=== PATIENT | female | born 2000 | race Caucasian/White ===

== ENCOUNTER 2022-08-02 05:11 | Inpatient (IN) ==
--- NOTE | 2022-08-02 06:11 | Emergency Department Note ---
Impression & Plan Intentional overdose, Substance abuse ED Provider Note ED Provider Note NAME: FAWAD MCKAY AGE:21 SEX: Female : 2000 ARRIVES VIA: EMS INFORMANT: Patient ED PROVIDER(s): Pepper Fang DO CHIEF COMPLAINT: Intentional overdose HPI: This is a 21-year-old female brought in by EMS after arriving at [facility] for rehab and admitting to them that she had recently taken on Abilify overdose. Patient is from [place] and states that while in route from [place] to [place] she took 20 tablets of Abilify 5 mg. She states this was done all at once approximately 14 hours ago. Patient did not tell her parents. Patient states she feels tired but had no nausea, vomiting, headache, chest pain, or difficulty breathing. Patient denies any other concern for illness or injury. PAST MEDICAL HISTORY:See Below PAST SURGICAL HISTORY:See Below FAMILY HISTORY:See Below SOCIAL HISTORY:See Below HOME MEDICATIONS:See Below ALLERGIES:See Below VITALS:See Below PHYSICAL EXAMINATION: GENERAL: alert, well appearing, well nourished, no distress, non-toxic EYE EXAM: normal conjunctiva, PERRL and EOM's grossly intact OROPHARYNX: no exudate, no erythema, lips, buccal mucosa, and tongue normal and mucous membranes are moist NECK: supple, no nuchal rigidity, no adenopathy, non-tender LUNGS: Clear to auscultation. Normal chest wall mechanics, no w/r/r HEART: no murmurs, S1 normal and S2 normal ABDOMEN: abdomen soft, non-tender, normo-active bowel sounds, no masses, no rebound or guarding. BACK: Back is symmetrical on inspection and there is no deformity, no midline tenderness, no CVA tenderness. SKIN: no rashes, petechiae, orbruising UPPER EXTREMITIES: upper extremities are grossly normal. FROM, nml pulses b/l. LOWER EXTREMITIES: No pitting edema. FROM, nml pulses b/l. NEURO EXAM: Normal sensorium, cranial nerves II-XII grossly intact, normal speech, no facial droop,nogross weakness of arms, no gross weakness of legs. Gross sensation intact. No ataxia. Vital Signs: reviewed and remarkable Differential Diagnosis: suicide attempt, accidental overdose, juan luis, electrolyte abnormality, dehydration, occult infection, toxidrome, substance abuse, as well as others were MEDICAL DECISION MAKING: This is a 21-year-old female brought in by EMS for medical evaluation after arriving and going through the intake process at [facility] in order to begin rehab for substance abuse. Patient admitted to intentional ingestion 14 hours prior to arrival. Patient's only symptom was mild somnolence. Labs drawn and sent, IV established, EKG performed and interpreted by me at bedside, patient placed on telemetry. Patient's labs reassuring, no ectopy or dysrhythmia noted, patient had no new or evolving symptoms. Case discussed with poison control as a precaution due to the long half-life of Abilify. They felt given her symptoms at this point in time the patient could be safely discharged back to rehab. I did ask case management to speak with the patient given this intentional overdose. I do not feel she is an imminent threat to herself at this time and she was in agreement with plan to return to rehab to begin her treatment. Patient discharged back to [facility] in stable condition. Consultation(s): 0730: Discussed with Poison Control. Can be medically cleared at this time. May have some increased somnolence over the next day or so however given reassuring labs and hemodynamically stable, can safely be discharged back to rehab. 0750: Discussed with case management who went and evaluated the patient at bedside. No prior mental health history. No thoughts of suicidal ideation, and states this was not a suicide attempt. No prior suicide attempt. Patient states she did this because she did not want to go to rehab. ER Treatment Provided: See below Diagnostics Interpreted By Me: -ECG: Normal sinus at 83, normal axis, normal intervals, no acute ST/T wave changes -Cardiac Monitoring: An order was placed for continuous cardiac monitoring. The monitor shows a rate of 80 with normal sinus rhythm. -Laboratory studies: As stated above and show below. -Imaging studies: [] Triage Nursing Note Reviewed Prior/Outside Records Reviewed Procedures: [] Critical Care: [] Past Med/Surg History Social History Smoking Status: Current every day smoker Tobacco Type: E-cigarettes / Vaping Results & Data (ED) Vital Signs Vital Signs - 24 hr 08/02/22 05:28 08/02/22 05:28 08/02/22 05:33 Temperature 36.9 C Temperature Source Oral Pulse Rate 87 99 H Pulse Rate [Apical] Respiratory Rate 18 18 Respiratory Effort / Characteristics Respiratory Depth Respiratory Pattern Blood Pressure 144/94 H Blood Pressure [Right Arm] Blood Pressure Mean 110 Blood Pressure Mean [Right Arm] Blood Pressure Position Sitting Blood Pressure Position [Right Arm] Pulse Oximetry 98 98 Oxygen Delivery Method Room Air Room Air Room Air Sepsis Recent Fever Within 48 Hours No Sepsis New/Unexplained Change in Mental Status No Sepsis Action Taken by Nursing No Action Required 08/02/22 05:33 08/02/22 07:00 08/02/22 09:00 Temperature Temperature Source Pulse Rate 83 Pulse Rate [Apical] 83 90 Respiratory Rate 16 18 Respiratory Effort / Characteristics Non-Labored Spontaneous Non-Labored Spontaneous Respiratory Depth Normal Normal Respiratory Pattern Regular Regular Blood Pressure Blood Pressure [Right Arm] 135/85 123/95 Blood Pressure Mean Blood Pressure Mean [Right Arm] 101 104 Blood Pressure Position Blood Pressure Position [Right Arm] Lying Sitting Pulse Oximetry 98 98 Oxygen Delivery Method Room Air Room Air Sepsis Recent Fever Within 48 Hours Sepsis New/Unexplained Change in Mental Status Sepsis Action Taken by Nursing Laboratory Data 08/02/22 05:15 08/02/22 05:15 Lab Results 08/02/22 08/02/22 08/02/22 Range/Units 05:15 05:15 05:15 WBC 7.28 (4.8-10.8) K/ul RBC 4.89 (4.20-5.40) M/uL Hgb 12.8 (12.0-16.0) g/dl Hct 38.9 (37.0-47.0) % MCV 79.6 L (80.0-100.0) fL MCH 26.2 (25.0-34.0) pg MCHC 32.9 (32.0-36.0) g/dL RDW Std Deviation 37.8 (36.4-46.3) fL RDW Coeff of Tiffany 13.2 (11.5-14.5) % Plt Count 358 (130-400) K/uL MPV 10.6 (9.4-12.4) fL Immature Gran % (Auto) 0.5 % Neut % (Auto) 34.8 % Lymph % (Auto) 50.4 % [place]ier % (Auto) 9.2 % Eos % (Auto) 4.4 % Baso % (Auto) 0.7 % Neut # (Auto) 2.53 (1.40-6.50) K/uL Lymph # (Auto) 3.67 H (1.2-3.4) K/uL [place] # (Auto) 0.67 H (0.11-0.59) K/uL Eos # (Auto) 0.32 (0-0.50) K/uL Baso # (Auto) 0.05 (0-0.2) K/uL Immature Gran # (Auto) 0.04 (0.01-0.20) K/uL Sodium 142 (136-145) mmol/L Potassium 3.4 L (3.5-5.1) mmol/L Chloride 107 (98-107) mmol/L Carbon Dioxide 26 (21-32) mmol/L Anion Gap 9 (3-11) BUN 5 L (6-23) mg/dl Creatinine 0.67 (0.6-1.2) mg/dl Est Cr Clr Drug Dosing 167.0 ml/min Est GFR ( Amer) 147.7 ml/min Est GFR (Non-Af Amer) 127.4 ml/min BUN/Creatinine Ratio 7.5 L (10-20) Glucose 90 (70-99(Fasting)) mg/dl Calcium 9.5 (8.6-10.3) mg/dl Magnesium 1.9 (1.7-2.4) mg/dl Total Bilirubin 0.3 (0.2-1.0) mg/dl AST 14 (13-39) U/L ALT 16 (7-52) U/L Alkaline Phosphatase 66 (34-104) U/L Total Protein 7.3 (6.0-8.3) gm/dl Albumin 3.8 (3.4-5.0) gm/dl Globulin 3.5 (2.5-4.0) gm/dl Albumin/Globulin Ratio 1.1 (0.9-2) HCG, Qual (Negative) Salicylates (3.0-30) mg/dl Urine Opiates Screen (Neg) Ur Methadone, Qual (Neg) Acetaminophen (10-30) ug/ml Urine Barbiturates (Neg) Ur Phencyclidine (PCP) (Neg) U Amphetamin/Meth Scrn (Neg) MDMA (Ecstasy) Screen (Neg) U Benzodiazepines Scrn (Neg) Ur Cocaine Metabolite (Neg) U Marijuana (THC) Screen (Neg) Ethyl Alcohol mg/dL < 10.0 (<10.0) mg/dl 08/02/22 08/02/22 08/02/22 Range/Units 05:15 05:32 05:53 WBC (4.8-10.8) K/ul RBC (4.20-5.40) M/uL Hgb (12.0-16.0) g/dl Hct (37.0-47.0) % MCV (80.0-100.0) fL MCH (25.0-34.0) pg MCHC (32.0-36.0) g/dL RDW Std Deviation (36.4-46.3) fL RDW Coeff of Tiffany (11.5-14.5) % Plt Count (130-400) K/uL MPV (9.4-12.4) fL Immature Gran % (Auto) % Neut % (Auto) % Lymph % (Auto) % [place] % (Auto) % Eos % (Auto) % Baso % (Auto) % Neut # (Auto) (1.40-6.50) K/uL Lymph # (Auto) (1.2-3.4) K/uL [place] # (Auto) (0.11-0.59) K/uL Eos # (Auto) (0-0.50) K/uL Baso # (Auto) (0-0.2) K/uL Immature Gran # (Auto) (0.01-0.20) K/uL Sodium (136-145) mmol/L Potassium (3.5-5.1) mmol/L Chloride (98-107) mmol/L Carbon Dioxide (21-32) mmol/L Anion Gap (3-11) BUN (6-23) mg/dl Creatinine (0.6-1.2) mg/dl Est Cr Clr Drug Dosing ml/min Est GFR ( Amer) ml/min Est GFR (Non-Af Amer) ml/min BUN/Creatinine Ratio (10-20) Glucose (70-99(Fasting)) mg/dl Calcium (8.6-10.3) mg/dl Magnesium (1.7-2.4) mg/dl Total Bilirubin (0.2-1.0) mg/dl AST (13-39) U/L ALT (7-52) U/L Alkaline Phosphatase (34-104) U/L Total Protein (6.0-8.3) gm/dl Albumin (3.4-5.0) gm/dl Globulin (2.5-4.0) gm/dl Albumin/Globulin Ratio (0.9-2) HCG, Qual Negative (Negative) Salicylates < 3.0 L (3.0-30) mg/dl Urine Opiates Screen Neg (Neg) Ur Methadone, Qual Neg (Neg) Acetaminophen < 3 L (10-30) ug/ml Urine Barbiturates Neg (Neg) Ur Phencyclidine (PCP) Neg (Neg) U Amphetamin/Meth Scrn Neg (Neg) MDMA (Ecstasy) Screen Pos H (Neg) U Benzodiazepines Scrn Neg (Neg) Ur Cocaine Metabolite Pos H (Neg) U Marijuana (THC) Screen Pos H (Neg) Ethyl Alcohol mg/dL (<10.0) mg/dl Discharge Plan Visit Data Chief Complaint: Overdose (Intentional) Stated Complaint: OVERDOSE ED Provider: Pepper Fang Discharge Problem: Intentional overdose, Substance abuse Patient Disposition: Transfer Inpatient Rehab Fac Condition: Good Discharge Instructions Prashant/Other Patient Handouts: ED Drug Abuse Activity Restrictions/Additional Instructions: Please return to [facility] to begin your rehab process. Please do not take extra medications beyond what they are prescribed as these can have harmful side effec ts and even permanent complications. If you have any new or concerning symptoms, you are welcome return the emergency room at any time. Forms Stand Alone Forms: Suicide Prevention Resources Referrals Referrals: PCP,NO [Primary Care Provider] -
[2022-08-02 06:17] LABS: Albumin Globulin Ratio 1.1 (0.9-2); Albumin Level 3.8 gm/dl (3.4-5.0); BUN Creatinine Ratio 7.5 (10-20); Bilirubin,Total 0.3 mg/dl (0.2-1.0); Calcium 9.5 mg/dl (8.6-10.3); Est GFR (African American) 147.7 ml/min; Est GFR (Non-African American) 127.4 ml/min; Globulin 3.5 gm/dl (2.5-4.0); Magnesium 1.9 mg/dl (1.7-2.4); Potassium 3.4 mmol/L (3.5-5.1); Total Protein 7.3 gm/dl (6.0-8.3)
[2022-08-02 06:25] LABS: Hematocrit (blood only) 38.9 % (37.0-47.0); Hemoglobin 12.8 g/dl (12.0-16.0); Mean Corpuscular Hemoglobin 26.2 pg (25.0-34.0); Mean Corpuscular Hgb Conc 32.9 g/dL (32.0-36.0); Mean Corpuscular Volume 79.6 fL (80.0-100.0); Mean Platelet Volume 10.6 fL (9.4-12.4); Platelet Count 358 K/uL (130-400); RDW Coefficient of Variation 13.2 % (11.5-14.5); RDW Standard Deviation 37.8 fL (36.4-46.3); Red Blood Count 4.89 M/uL (4.20-5.40); White Blood Count 7.28 K/ul (4.8-10.8)
[2022-08-02 06:28] LABS: Acetaminophen < 3 ug/ml (10-30); Salicylate < 3.0 mg/dl (3.0-30)
[2022-08-02 06:35] LABS: Pregnancy Test, Serum Negative (Negative)
[2022-08-02 07:14] LABS: Basophils # (auto) 0.05 K/uL (0-0.2); Basophils % (auto) 0.7 %; Eosinophils # (auto) 0.32 K/uL (0-0.50); Eosinophils % (auto) 4.4 %; Immature Granulocytes # (auto) 0.04 K/uL (0.01-0.20); Immature Granulocytes % (auto) 0.5 %; Lymphocytes # (auto) 3.67 K/uL (1.2-3.4); Lymphocytes % (auto) 50.4 %; Monocytes # (auto) 0.67 K/uL (0.11-0.59); Monocytes % (auto) 9.2 %; Neutrophils # (auto) 2.53 K/uL (1.40-6.50); Neutrophils % (auto) 34.8 %
[2022-08-02 07:25] LABS: Amphetamines+Metham, Urine Neg (Neg); Barbiturates, Urine Neg (Neg); Benzodiazepine, Urine Neg (Neg); Cocaine, Urine Pos (Neg); MDMA (Ecstacy), Urine Pos (Neg); Methadone, Urine Neg (Neg); Opiate, Urine Neg (Neg); Phencyclidine, Urine Neg (Neg)
--- NOTE | 2022-08-02 10:01 | Emergency Department Note ---
ED Visit Note While patient was awaiting transportation back to [facility], they called stating they were not comfortable with her returning and intended to write a 302 petitioning statement as they feel this was a suicidal gesture and feels she should have a full formal psychiatric evaluation. .
--- NOTE | 2022-08-02 10:26 | Emergency Department Note ---
ED Visit Note The patient was taken in signout from Dr. Fang at the change of shift. Please see that note for details. The patient was pending full mental health evaluation [facility] her Abilify which she reports she did so because she did not want to go to drug rehab but did not have true intention of killing herself or hurting herself. The ingestion had occurred approximately 14 hours prior to her ED evaluation and so poison control center did not feel additional observation was warranted and the patient was medically cleared. 302 warrant was received by provider at [facility] describing the patient had reported to several staff members on her intake that she did have thoughts of killing herself and had overdosed with this intent. I did subsequently meet with the patient accompanied by our rn case manager hospice and reviewed concerns about her suicide attempt. The patient was not forthcoming or cooperative. She did admit to overdosing with an attempt to kill herself however replies that "just because I overdosed trying to kill myself, does not mean I am suicidal". I informed her that the fact that she did attempt to overdose to kill herself is grounds to proceed with her 302 warrant for involuntary psychiatric treatment. CM reviewed plan with parents who agreed. Bed search initiated. The patient was accepted to [facility] under 302. .
[2022-08-02] MEDS ORDERED: SODIUM CHLORIDE 0.65% NA SOLN 45 ML (OCEAN) PRN (17:11)
[2022-08-02] MEDS ORDERED: hydrOXYzine HCl 25 MG TAB PO PRN (17:11)
[2022-08-02] MEDS ORDERED: MAGNESIUM HYDROXIDE SUSP 30 ML UDC PO PRN (17:11)
[2022-08-02] MEDS ORDERED: BISMUTH SUBSALICYLATE LIQD 236 ML PO PRN (17:11)
[2022-08-02] MEDS ORDERED: ALUMINUM/MAGNESIUM SUSP 30 ML UDC PO PRN (17:11)
[2022-08-02] MEDS ORDERED: ACETAMINOPHEN 325 MG TAB PO PRN (17:11)
[2022-08-02] MEDS ORDERED: OLANZapine 5 MG TABLET PO PRN (17:12)
[2022-08-02] MEDS ORDERED: Patient's ALLERGY Info needs ENTERED SCH (17:15)
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
[2022-08-03] MEDS ORDERED: Ativan PO Alcohol Withdrawal--Active Protocol PO PRN (11:26)
[2022-08-03] MEDS ORDERED: LORazepam 1 MG TAB PO PRN ×3 (11:26)
[2022-08-03] MEDS: THIAMINE HCL 100 MG TAB PO SCH (12:02)
[2022-08-03] MEDS: NICOTINE 21 MG/24 HR TDSY TD SCH (12:03)
[2022-08-03] MEDS: FOLIC ACID 1 MG TAB PO SCH (12:03)
[2022-08-03] MEDS: NICOTINE POLACRILEX 2 MG GUM MT PRN ×2 (12:07→16:44)
[2022-08-04] MEDS: hydrOXYzine HCl 25 MG TAB PO PRN ×3 (04:19→19:27)
[2022-08-04] MEDS: NICOTINE 21 MG/24 HR TDSY TD SCH (08:30)
[2022-08-04] MEDS: FOLIC ACID 1 MG TAB PO SCH (08:31)
[2022-08-04] MEDS: THIAMINE HCL 100 MG TAB PO SCH (08:31)
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
[2022-08-04] MEDS: NICOTINE POLACRILEX 2 MG GUM MT PRN ×4 (08:45→18:20)
--- NOTE | 2022-08-04 08:47 | Electrocardiogram Report ---
Test Reason : Blood Pressure : / mmHG Vent. Rate : 083 BPM Atrial Rate : 083 BPM P-R Int : 138 ms QRS Dur : 076 ms QT Int : 368 ms P-R-T Axes : 013 035 023 degrees QTc Int : 432 ms Normal sinus rhythm Normal ECG No previous ECGs available Confirmed by Nicolas Mancia ([id number]) on 08/04/2022 8:47:23 AM Referred By: Confirmed By:Nicolas Mancia
[2022-08-04] MEDS ORDERED: LORazepam 1 MG TAB PO PRN ×3 (17:52)
[2022-08-04] MEDS ORDERED: Ativan PO Alcohol Withdrawal--Active Protocol PO PRN (17:52)
[2022-08-04] MEDS: AMOXICILLIN 500 MG CAP PO SCH (20:59)
[2022-08-05] MEDS: NICOTINE 21 MG/24 HR TDSY TD SCH (08:47)
[2022-08-05] MEDS: AMOXICILLIN 500 MG CAP PO SCH (08:48)
[2022-08-05] MEDS: FOLIC ACID 1 MG TAB PO SCH (08:49)
[2022-08-05] MEDS: THIAMINE HCL 100 MG TAB PO SCH (08:49)
[2022-08-05] MEDS: NICOTINE POLACRILEX 2 MG GUM MT PRN (09:03)
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
[2022-08-07 15:26] LABS: Cocaine, Urine 7090 ng/mL (<100); MDA negative; MDEA negative; MDMA (Ecstasy) Urine, Confirm negative; Marijuana Quant, GCMS Urine >5000 ng/mL (<5)
== END 2022-08-05 12:35 | disposition home or self-care (01) | DRG 918 ==
LOC: ED 05:11 → 3S 16:27